=== PATIENT | male | born 1940 | race Caucasian/White ===

== ENCOUNTER 2022-04-06 07:32 | Day surgery (SDC) | payer BC, SELFPAY ==
[2022-04-04 13:33] VITALS: BMI 25.0
[2022-04-06 07:56] VITALS: BP 140/95; PULSE 110; RESP 18; TEMP 36.3; O2SAT 97
[2022-04-06] MEDS: sodium chloride 0.9% 1,000 ML 30 ML IV (08:02)
--- NOTE | 2022-04-06 08:29 | ANES.PREANE2 ---
Pre-Anesthetic Assessment Height/Weight: Height 1.83 m Weight 83.915 kg Temp Pulse Resp BP Pulse Ox O2 Del Method 97.3 F L 110 H 18 140/95 97 04/06/22 07:56 04/06/22 07:56 04/06/22 07:56 04/06/22 07:56 04/06/22 07:56 04/06/22 07:56 Preop Diagnosis: History of colon polyps Operation Date: 04/06/22 09:15 Proposed Procedures p Colonoscopy 09575/Z12.11(Not Applicable) - Miki Dooley MD Familial anesthetic complications: none Was Beta Jaron taken within 24 hours: N/A Was Clonidine taken within 24 hours: N/A Last intake: Intake Last Liquid Date 04/05/22 Last Liquid Time 22:30 Last Solid Date 04/04/22 Last Solid Time 21:00 Social No alcohol and No tobacco Exam alert, oriented x 3, clear to auscultation bilaterally and regular rate & rhythm Airway Submandibular: within normal limits Cervical ROM: within normal limits Dentition: caps prostate hypertrophy GI Gastroesophageal Reflux Disease Anesthetic Plan ASA status: 2 Anesthesia: MAC Medications/Allergies Home Medications Medication Instructions Recorded Confirmed Last Taken Type lansoprazole 30 mg capsule,delayed 30 mg PO DAILY 12/28/21 04/04/22 04/05/22 History release multivitamin 1 tab PO DAILY 12/28/21 04/04/22 04/05/22 History oxygen-air delivery systems 12/28/21 12/30/21 Unknown History tamsulosin 0.4 mg capsule 0.4 mg PO DAILY 12/28/21 04/04/22 04/05/22 History trazodone 100 mg tablet 100 mg PO DAILY 12/28/21 04/04/22 04/05/22 History Allergies Allergy/AdvReac Type Severity Reaction Status Date / Time No Known Allergies Allergy Verified 12/30/21 08:40 Current Medications Generic Name Dose Route Start Last Admin Trade Name Freq PRN Reason Stop Dose Admin Sodium Chloride 1,000 mls @ 30 mls/hr 04/06/22 07:45 04/06/22 08:02 Sodium Chloride 0.9% IV 30 mls/hr .Q24H WYATT Administration PFSH Anesthesia Family History Other Cancer Social History Smoking and tobacco status: former smoker Data Anesthesia Cardiac Studies: No Data to Display
--- NOTE | 2022-04-06 08:30 | P.HP_ITS ---
Same Day Surgery H&P Indication for Procedure/HPI DATE OF PROCEDURE: April 06, 2022 CHIEF COMPLAINT/INDICATIONFOR SURGICAL PROCEDURE: History of colon polyps PREOP DIAGNOSIS: History of colon polyps PLANNED PROCEDURE: Operation Date: 04/06/22 09:15 Proposed Procedures p Colonoscopy 27640/Z12.11(Not Applicable) - Miki Dooley MD Patient comes today for surveillance colonoscopy and he denies any changes since last visit on 12/28/2021 ROS All systems have been reviewed negative except as for the above or per problem list. Medications/Allergies* Home Medications Medication Instructions Recorded Confirmed Type lansoprazole 30 mg capsule,delayed 30 mg PO DAILY 12/28/21 04/04/22 History release multivitamin 1 tab PO DAILY 12/28/21 04/04/22 History oxygen-air delivery systems 12/28/21 12/30/21 History tamsulosin 0.4 mg capsule 0.4 mg PO DAILY 12/28/21 04/04/22 History trazodone 100 mg tablet 100 mg PO DAILY 12/28/21 04/04/22 History Allergies/Adverse Reactions Allergy/AdvReac Type Severity Reaction Status Date / Time No Known Allergies Allergy Verified 12/30/21 08:40 Current Medications: Generic Name Dose Route Start Last Admin Trade Name Freq PRN Reason Stop Dose Admin Sodium Chloride 1,000 mls @ 30 mls/hr 04/06/22 07:45 04/06/22 08:02 Sodium Chloride 0.9% IV 30 mls/hr .Q24H [facility]YATT Administration Pertinent History/Comorbid Conditions* Family History (Updated 12/28/21 @ 09:06 by Rosemarie Guajardo MA) Cancer Social History Smoking and tobacco status: former smoker Pertinent Exam Findings alert, oriented x 3, regular rate & rhythm and procedure specific exam findings (Abdominal exam nontender nondistended soft) Recommendations Surgery/Procedure today (Surveillance colonoscopy) Coding Level of Care Code Acute [employer] for [employer]iado
[2022-04-06 09:34] VITALS: BP 98/66; PULSE 87; RESP 16; TEMP 36.1; O2SAT 95
[2022-04-06 09:39] VITALS: BP 93/68; PULSE 87; RESP 16; O2SAT 94
[2022-04-06 09:49] VITALS: BP 128/81; PULSE 86; RESP 18; O2SAT 96
--- NOTE | 2022-04-06 13:33 | ANE.PACU2 ---
Inpatient post-anesthesia follow up: Airway intact: Yes Vital signs: Temperature 97.0 F Pulse Rate 86 Respiratory Rate 18 Blood Pressure 128/81 Pulse Oximetry 96 Oxygen Delivery Me thod Room Air Oxygen Flow Rate Fraction of Inspir ed Oxygen Hydration adequate: Yes Nausea and vomiting: No Pain level: 1 Mental status: Baseline
== END 2022-04-06 10:40 | disposition home or self-care (01) ==
PROVIDERS: PCP Family Medicine; Visit Provider Surgery
PROC: 0DJD8ZZ Inspection of Lower Intestinal Tract, Via Natural or Artificial Opening Endoscopic (ICD-10-PCS; CPT 45378; principal; 2022-04-06 09:15)
DX: Z12.11 Encounter for screening for malignant neoplasm of colon (principal); K63.5 Polyp of colon; K21.9 Gastro-esophageal reflux disease without esophagitis; Z87.891 Personal history of nicotine dependence
CPT/HCPCS: 45385; 88305; J2704; J7030

== ENCOUNTER → 2022-07-29 12:24 | Outpatient (BNVA) | payer BC, SELFPAY | PROVIDERS: PCP Family Medicine; Visit Provider Nurse Practitioner Family | DX: J06.9 Acute upper respiratory infection, unspecified (principal); J10.1 Influenza due to other identified influenza virus with other respiratory manifestations | CPT/HCPCS: 87400 ==

== ENCOUNTER → 2023-07-13 14:26 | Outpatient (BNVA) | payer BC, SELFPAY | PROVIDERS: PCP Family Medicine; Visit Provider Nurse Practitioner | DX: U07.1 COVID-19; R50.9 Fever, unspecified | CPT/HCPCS: 87426 ==